=== PATIENT | female | born 1930 | race Caucasian/White ===

== ENCOUNTER 2018-05-09 20:28 | Emergency (ER) | payer MEDICARE, BC ==
[2018-05-09 20:35] VITALS: BP 165/84; PULSE 80; RESP 18; TEMP 97.8
[2018-05-09] MEDS ORDERED: CEPHALEXIN 500MG STARTER PACK 4 CAP BTL PO STA (20:54)
--- NOTE | 2018-05-09 20:59 | ED ---
General Adult HPI - General Chief complaint: Extremity Injury, Upper Stated complaint: allergic reaction on arm Time Seen by Provider: 05/09/18 20:44 Source: patient, RN notes reviewed Mode of arrival: ambulatory Limitations: no limitations - History of Present Illness Initial comments: 87-year-old female presents to the emergency determine for a chief complaint of bites to the left arm. Patient states it started as a small red area on the left arm yesterday and it has increased in size today. She states it is warm to touch. Patient states it is itching. Patient denies pain in the elbow joint. Patient denies pain with movement of the elbow. Patient denies fevers or chills. Patient has no other complaints at this time including shortness of breath, chest pain, abdominal pain, nausea or vomiting, headache, or visual changes. - Related Data Home Medications Medication Instructions Recorded Confirmed Furosemide [Lasix] 20 mg PO DAILY 05/09/18 05/09/18 Multivitamin,Therapeutic [Thera] 1 tab PO DAILY 05/09/18 05/09/18 Nadolol 20 mg PO HS 05/09/18 05/09/18 Previous Rx's Medication Instructions Recorded Cephalexin [Keflex] 500 mg PO Q6HR 10 Days cap 05/09/18 Loratadine [Claritin] 10 mg PO DAILY #20 tab 05/09/18 Allergies Allergy/AdvReac Type Severity Reaction Status Date / Time No Known Allergies Allergy Verified 05/09/18 20:47 Review of Systems ROS Statement: Those systems with pertinent positive or pertinent negative responses have been documented in the HPI. ROS Other: All systems not noted in ROS Statement are negative. Past Medical History Past Medical History: No Reported History History of Any Multi-Drug Resistant Organisms: None Reported Past Surgical History: Cholecystectomy, Hysterectomy, Orthopedic Surgery Past Psychological History: No Psychological Hx Reported Smoking Status: Never smoker Past Alcohol Use History: None Reported Past Drug Use History: None Reported General Exam Limitations: no limitations General appearance: alert, in no apparent distress Head exam: Present: atraumatic, normocephalic, normal inspection Eye exam: Present: normal appearance ENT exam: Present: normal exam, mucous membranes moist Neck exam: Present: normal inspection, full ROM. Absent: tenderness, meningismus, lymphadenopathy Respiratory exam: Present: normal lung sounds bilaterally. Absent: respiratory distress, wheezes, rales, rhonchi, stridor Cardiovascular Exam: Present: regular rate, normal rhythm, normal heart sounds. Absent: systolic murmur, diastolic murmur, rubs, gallop, clicks Extremities exam: Present: full ROM (Full range of motion of the left elbow including flexion and extension without any pain.), tenderness (Mild tenderness to the area of redness on the left elbow joint.), normal capillary refill ( Refill less than 2 seconds and radial pulse 2+ in the left upper extremity.), other (Patient has a 7 cm x 7 cm area of erythema in the left medial elbow. No streaking redness noted. No abscess. Area is warm to touch and appears to be a cellulitis.) Course Vital Signs 05/09/18 20:31 Temperature 97.8 F Pulse Rate 80 Respiratory 18 Rate Blood Pressure 165/84 O2 Sat by Pulse 96 Oximetry Medical Decision Making - Medical Decision Making 87-year-old female presents to the emergency department for cellulitis of the left elbow. Patient is afebrile in the emergency department. Patient has full range motion of the left elbow and denies pain in the elbow joint. On exam there is a 7 cm x 7 cm area of redness in the left elbow that appears to be a cellulitis. Patient was given a starter pack of Keflex in the emergency department as well as a prescription. Borders were traced with a marker. Patient was educated to watch for spreading redness past the marker, pain in the elbow joint, fever and return if these occur. She is to return if she sees any streaking redness as well. She will follow up with primary care in 1-2 days. Disposition Clinical Impression: Cellulitis Disposition: HOME SELF-CARE Condition: Good Instructions: Cellulitis (ED) Additional Instructions: Take Keflex as directed. Follow-up with primary care in 1-2 days. Please monitor for spreading redness, streaking redness, pain in the elbow joint or fever and return if these occur. Prescriptions: Cephalexin [Keflex] 500 mg PO Q6HR 10 Days cap Loratadine [Claritin] 10 mg PO DAILY #20 tab Is patient prescribed a controlled substance at d/c from ED?: No Referrals: Tim Wilkes MD [Primary Care Provider] - 1-2 days Time of Disposition: 20:56
== END 2018-05-09 21:07 | disposition home or self-care (01) ==
LOC: EC 20:28
DX: L03.114 Cellulitis of left upper limb (principal); Z79.899 Other long term (current) drug therapy
CPT/HCPCS: 99283